=== PATIENT | female | born 1990 | race Caucasian/White ===

== ENCOUNTER → 2023-01-02 09:00 | Outpatient (BNV) | payer OTHER, SELFPAY | PROVIDERS: Visit Provider Nurse Practitioner Psychiatric/Mental Health | DX: F33.2 Major depressive disorder, recurrent severe without psychotic features (principal) | CPT/HCPCS: 90792; 99212; 99213; 99214 ==

== ENCOUNTER 2023-02-15 09:00 | Outpatient (RCR) | payer OTHER, SELFPAY ==
--- NOTE | 2023-01-02 11:00 | HO.PS.ADMBH ---
HPI Date of Service: 01/02/23 Chief Complaint: depression,anxiety Sources of Information: patient interviewed, chart reviewed and crisis/core team assessment reviewed HPI Medical Problems Affecting Mental Status: No Narrative: Chart reviewed prior to meeting with patient. Patient is a 32-year-old single female, referred to [facility] as a step-down from [facility] PHP program. She just completed their PHP, due to increased symptoms of depression and anxiety with suicidal ideation. Precipitating events include recent discovery that her ex-boyfriend who she dated for 10+ years has become engaged to a colleague. They all work for same company, and she sees him at work. Reports that she has passive SI at this time, with no intent or plan. Has engaged in treatment since age 17, with therapy off/on. She had had suicidal ideation in 2018 with a plan to overdose, was admitted to [facility] of or retreat at that time. She owns her own home, has 2 roommates. One roommate is moving out of the and the month. She has 2 dogs. She does not want to engage with her friends at this time, because many of them station chief own homes in have gotten , and she feels as if her life is stuck. She did just complete a master's degree program in social work, graduated in November 2022. Since completing the program she has more time, and has found her symptoms to worsen. Reports waking up with a racing heart, to read in the morning. Disrupted sleep, anhedonia, feeling hopeless at times, guilt, decreased energy, decreased appetite, decreased concentration, shame and worthlessness. 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 She found the PHP at [facility] to be helpful in adding structure as well as opportunity for social interaction/group work. She hopes to had the same experience here. She has had recent medication changes, including the addition of Wellbutrin and lithium. [facility] has referred her to outpatient providers at [facility]. She has an intake scheduled, plans to reschedule with them, as it is next Saturday. Past Psychiatric History: [facility] PHP, just completed 12/2022. [facility] PHP in several times, [facility] at [place] in 2018 with SI Med trials: All SSRIs, including fluoxetine, sertraline. Effexor, Abilify, lamotrigine, Trintellix, Viibryd. Completed TMS in 2016 Medical Evaluation Reviewed: Yes PMFSH Family History: Mother: depression Social History: Raised by both parents, has 1 younger brother. Recently obtained a master's degree in social work. Works full-time. Substance History: None Trauma History: None Meds/Allergies Allergies Allergies Allergy/AdvReac Type Severity Reaction Status Date / Time Unable to Assess Allergy Unverified 01/02/23 09:01 Mental Status Exam Mental Status Exam Narrative: Well-developed, well-nourished, in NAD. Alert and oriented x4. General appearance, well groomed, appropriately dressed for season and age. Musculoskeletal: No involuntary movements noted, motor activity calm, posture within normal limits. Manner/behavior: Calm, cooperative. Speech: Fluent, unimpaired, normal rate volume and rhythm. Mood: depressed. Affect: Mood congruent. Thought process/associations: Linear Thought content: Normal Delusions: None. Hallucinations: None. Suicidality/self destructive behavior: Passive SI, no intent or plan Homicidality/violence: none. Reliability: Good Judgment: Fair Insight: Fair MSK exam: Normal ambulation, no cogwheeling or rigidity noted. Depressive Symptoms: Increased Anxiety, Difficulty Sleeping, Changes in Appetite, Loss of Int. in Activity, Feelings of Worthlessness, Hopelessness, Isolating-Friends/Family, Thoughts of /Suicide and Low Self Esteem Judgement: Fair Assessment & Plan Assessment & Plan (1) Major depressive disorder, recurrent severe without psychotic features: Status: Acute Code(s): F33.2 - Major depressive disorder, recurrent severe without psychotic features Assessment and Plan: Patient is a 32-year-old single female, referred to [facility] as a step-down from [facility] PHP program. She just completed their PHP, due to increased symptoms of depression and anxiety with suicidal ideation. Precipitating events include recent discovery that her ex-boyfriend who she dated for 10+ years has become engaged to a colleague. They broke up several years ago. She had always hope that they would reconcile. They all work for same company, and she sees him at work. Reports that she has passive SI at this time, with no intent or plan. While at [facility] she had recent medication changes, including Wellbutrin 300 mg daily, lithium at bedtime, hydroxyzine p.r.n.. She states that she feels these medications are helpful, although has not been receiving Wellbutrin long enough to notice improvement symptoms regarding depression. Would like to focus more on groups while here and structure, as she just had recent medication changes. (2) Generalized anxiety disorder: Status: Acute Code(s): F41.1 - Generalized anxiety disorder Plan 1. Continue with current [facility] plan of care. 2. Continue with current medication regimen as prescribed by outpatient provider. 3. Follow-up as per protocol. Patient educated on: diagnosis, medication risk/benefits and therapeutic strategies Informed Consent: understands Reason for continued partial hosp. stay Substantial Risk for: harm to self, inability to function and rapid decompensation Certification I certify that partial hospital treatment is medically necessary due to the symptoms and problems resulting from the patient's mental illness and the failure to treat the patient at the partial hospital level of care would likely result in the patient requiring inpatient psychiatric care which could not be prevented at a less intensive level of care. Time Spent With Patient Time: Total time managing care of this patient today ___60_ minutes.
[2023-01-02 12:17] VITALS: BP 112/64; PULSE 72; TEMP 37.4
[2023-01-02 12:21] VITALS: BMI 25.3
--- NOTE | 2023-01-02 12:58 | PC.ADMIT ---
Patient is a 32 year old female who was referred to [facility] from [facility] Partial Hospitalization program where she was admitted d/t increased depression and ongoing passive SI, anxiety with panic attacks, crying spells and not want to get out of bed. Patient has not been able to work d/t symptoms. She stated she has been working at [employer] for the past 8 years and her mcc boyfriend broke up with her and is now engaged to a [employer] employee. She reports while she was working she would see both of them at work. She continues to grieve the relationship. Patient reports feelings of hopelessness and feels shes not good enough. Fears she will never find another job or partner. She reports she has been on a leave of absence from work for 8 weeks
--- NOTE | 2023-01-04 07:30 | HO.IOP ---
The clients case was reviewed and opened in treatment team
--- NOTE | 2023-01-04 11:15 | HO.PHP ---
The clients window caser Fide called from [facility] requesting start date and estimated length of sat for IOP. I spoke with pratik and she signed a release. I call and gave Fide the information.
--- NOTE | 2023-01-17 10:13 | P.PNPSP_ITS ---
Subjective Subjective Date of Service: 01/17/23 Reason For Visit: depression,anxiety Healthcare Proxy: No Guardianship: No Medical Problems Affecting Mental Status: No Interim History: pt attending [facility] and reports benefitting from group treatment; pt compliant with lithium and wellbutrin; discussed need fro hydration while on lithum; she is scheduled for repeat lithium level on january 28. she reports s the medication has been helpful with mood and reducing intrusive SI. pt states no SI or Hi Medication Compliance: Yes Side effects from medications: Yes (frequent urination) Attending Groups: Yes Review of Systems Acute medical concerns: No Medical Review of Systems: unchanged Review of Systems Review of Systems Yes all other systems are reviewed and are negative Mental Status Exam Mental Status Exam Narrative: Well-developed, well-nourished, in NAD. Alert and oriented x4. General appearance, well groomed, appropriately dressed for season and age. Musculoskeletal: No involuntary movements noted, motor activity calm, posture within normal limits. Manner/behavior: Calm, cooperative. Speech: Fluent, unimpaired, normal rate volume and rhythm. Mood: depressed. Affect: Mood congruent. Thought process/associations: Linear Thought content: Normal Delusions: None. Hallucinations: None. Suicidality/self destructive behavior: Passive SI, no intent or plan Homicidality/violence: none. Reliability: Good Judgment: Fair Insight: Fair MSK exam: Normal ambulation, no cogwheeling or rigidity noted. Diagnostics Vital Signs (24Hr): BMI result Body Mass Index 25.3 Assessment & Plan Assessment & Plan (1) Major depressive disorder, recurrent severe without psychotic features: Status: Acute Code(s): F33.2 - Major depressive disorder, recurrent severe without psychotic features Assessment and Plan: Patient is a 32-year-old single female, referred to [facility] as a step-down from [facility] PHP program. She just completed their PHP, due to increased symptoms of depression and anxiety with suicidal ideation. Precipitating events include recent discovery that her ex-boyfriend who she dated for 10+ years has become engaged to a colleague. They broke up several years ago. She had always hope that they would reconcile. They all work for [employer], and she sees him at work. Reports that she has passive SI at this time, with no intent or plan. Pt taking Wellbutrin 300 mg daily, lithium 600mg at bedtime and hydroxyzine p.r.n.. She states that she feels these medications are helpful. scheduled fro labs January 28. Would like to focus more on groups while here and structure, as she just had recent medication changes. (2) Generalized anxiety disorder: Status: Acute Code(s): F41.1 - Generalized anxiety disorder Plan 1. Continue with current [facility] plan of care. 2. Continue with current medication regimen as prescribed by outpatient provider. 3. Follow-up as per protocol. 4. [facility] paperwork completed Patient educated on: diagnosis, medication risk/benefits, therapeutic strategies and other (need fro adequate hydration) Informed Consent: understands and further education needed Reason for contiued partial hosp. stay Substantial Risk for: harm to self, inability to function and rapid decompensation Certification I certify that partial hospital treatment is medically necessary due to the symptoms and problems resulting from the patient's mental illness and the failure to treat the patient at the partial hospital level of care would likely result in the patient requiring inpatient psychiatric care which could not be prevented at a less intensive level of care. Total time managing care of this patient today ___45_ minutes. Discharge Plan Discharge Attending provider: King Guerin Medications: No Action lithium carbonate 300 mg Capsule 600 mg PO BEDTIME hydroxyzine HCl 25 mg Tablet 25 mg PO BID PRN (Reason: Anxiety) bupropion HCl [Wellbutrin XL] 300 mg Tablet Extended Release 24 Hr 300 mg PO QAM
--- NOTE | 2023-01-23 13:50 | HO.IOP ---
I met with Christine to discuss needs for discharge. She states that she would like a new prescriber because she is not pleased with the prescriber she has. We discussed my making an appointment to [facility] if she can not switch prescribers where she is at. She will let me know.
--- NOTE | 2023-02-01 09:33 | HO.PHPPROGNO ---
Subjective Subjective Date of Service: 02/01/23 Reason For Visit: depression,anxiety Healthcare Proxy: No Guardianship: No Medical Problems Affecting Mental Status: No Interim History: Christine is seen for follow-up as part of her engagement at [facility]. She is stable and is doing better in talked about the benefits that she is gaining from her treatment. She was put on lithium carbonate while at [facility] for suicidal ideations and her level a few days ago was 0.6. She also is on Wellbutrin XL 300 mg and very occasional p.r.n. hydroxyzine. She denies any major side effects other than urinating more on lithium. She is not getting many times during the night to urinate. Medication Compliance: Yes Side effects from medications: Yes (Increased urination) Attending Groups: Yes Review of Systems Review of Systems Yes all other systems are reviewed and are negative Mental Status Exam Mental Status Exam Narrative: In today's visit she is alert, oriented and pleasant. Normal speech. Good eye contact. Affect is appropriate and varied. No SI upon inquiry. No signs of psychosis. Cognitively is intact. Judgment is intact Diagnostics Vital Signs (24Hr): BMI result Body Mass Index 25.3 Assessment & Plan Assessment & Plan (1) Major depressive disorder, recurrent severe without psychotic features: Status: Acute Code(s): F33.2 - Major depressive disorder, recurrent severe without psychotic features Plan Continue current medications and continue partial hospital Certification I certify that partial hospital treatment is medically necessary due to the symptoms and problems resulting from the patient's mental illness and the failure to treat the patient at the partial hospital level of care would likely result in the patient requiring inpatient psychiatric care which could not be prevented at a less intensive level of care. Total time managing care of this patient today ____ minutes. Discharge Plan Discharge Attending provider: King Guerin Medications: Continued lithium carbonate 300 mg Capsule 600 mg PO BEDTIME Qty: 60 0RF bupropion HCl [Wellbutrin XL] 300 mg Tablet Extended Release 24 Hr 300 mg PO QAM Qty: 60 0RF No Action hydroxyzine HCl 25 mg Tablet 25 mg PO BID PRN (Reason: Anxiety) Stand Alone Forms: Patient Portal Discharge page Patient Education: Depression (DC)
--- NOTE | 2023-02-06 15:12 | HO.PHP ---
I met with the client because she stated in the third group that she was experiencing suicidal ideation with plan but no intent although not sure that will change. We discussed going to get assessed and possibly going inpatient. She was agreeable to do so although after talking she stated that she does not have intent and wants to come back here tomorrow. We devised a plan that includes calling crisis if needed and calling out from work and talking with her boss. I then called the client at 3:00 to make sure she was okay and following the plan. She states that she did call out of work and is presently at a friends home. She states that she does not have intent and is safe and will be in PHP tomorrow. She has the numbers for crisis if needed although does say that she is safe.
--- NOTE | 2023-02-12 11:34 | HO.PHPPROGNO ---
Subjective Subjective Date of Service: 02/12/23 Reason For Visit: depression,anxiety Healthcare Proxy: No Guardianship: No Medical Problems Affecting Mental Status: No Interim History: Christine is seen for follow-up as part of her partial hospital engagement. She has been doing very well and has found the program very helpful. She will be ending on 02/15. A prescription for lithium was sent in but she would like the extended-release and since she is going on vacation and does not want change to a new formulation. I will call in Lithobid 300 mg 60, 2 q.h.s.. She does have an appointment with her psychiatrist in mid-February. No other changes were made today Medication Compliance: Yes Side effects from medications: No Review of Systems Review of Systems Yes all other systems are reviewed and are negative Mental Status Exam Mental Status Exam Narrative: In today's visit she is alert, oriented and pleasant. Normal speech. Good eye contact. Affect is appropriate and varied. No SI upon inquiry. No signs of psychosis. Cognitively is intact. Judgment is intact Diagnostics Vital Signs (24Hr): BMI result Body Mass Index 25.3 Assessment & Plan Assessment & Plan (1) Major depressive disorder, recurrent severe without psychotic features: Status: Acute Code(s): F33.2 - Major depressive disorder, recurrent severe without psychotic features Plan Continue current regimen. Patient educated on: medication risk/benefits Certification I certify that partial hospital treatment is medically necessary due to the symptoms and problems resulting from the patient's mental illness and the failure to treat the patient at the partial hospital level of care would likely result in the patient requiring inpatient psychiatric care which could not be prevented at a less intensive level of care. Total time managing care of this patient today ____ minutes. Discharge Plan Discharge Attending provider: King Guerin Medications: New lithium carbonate [Lithobid] 300 mg tablet extended release 600 mg PO BEDTIME Qty: 60 0RF Continued lithium carbonate 300 mg Capsule 600 mg PO BEDTIME Qty: 60 0RF bupropion HCl [Wellbutrin XL] 300 mg Tablet Extended Release 24 Hr 300 mg PO QAM Qty: 60 0RF No Action hydroxyzine HCl 25 mg Tablet 25 mg PO BID PRN (Reason: Anxiety) Stand Alone Forms: Patient Portal Discharge page Patient Education: Depression (DC), Help Prevent Suicide (DC), Anxiety (GEN)
--- NOTE | 2023-02-12 16:06 | HO.IOP ---
Christine asked IOP staff if she could meet with the clinician. IOP staff was receptive. Christine talked about feeling worried due to how she may have affected a group member by not participating in the conversation and was shut down in the second group yesterday. Christine disclosed that she was shut down for her own personal reasons due to it reminding her of situations with her father. Christine expressed concerns around possibly affecting this group member. IOP staff encouraged Christine if she feels that way, she can attempt addressing it with that group member. IOP staff and Christine talked about the impacts of anxiety and how it leads to her worry. Christine lastly, expressed concerns around why her clinician has been out and was worried that she got her fired. IOP staff asked Christine why she would feel that way. Christine disclosed she misinterpreted a statement from her clinician. IOP staff reassured Chrsitine that her clinician will be returning tomorrow and had just taken a couple personal days. Christine was receptive and thanked the IOP staff member.
--- NOTE | 2023-02-15 09:30 | P.PNPSP_ITS ---
Subjective Subjective Date of Service: 02/15/23 Reason For Visit: depression,anxiety Healthcare Proxy: No Guardianship: No Medical Problems Affecting Mental Status: No Interim History: This is is a follow-up visit with Regla has part of her partial hospital engagement. She is being discharged today. She states that the program was quite helpful to her, giving her some new tools and insight. She continues on L ithobid and Wellbutrin. She has an appointment with her provider on 03/08 and talked about her upcoming ten-day trip to [facility]. She has enough medication supply until her next appointment. She denies any side effects. No changes were made today Medication Compliance: Yes Side effects from medications: No Attending Groups: Yes Review of Systems Review of Systems Yes all other systems are reviewed and are negative Mental Status Exam Mental Status Exam Narrative: In today's visit she is alert, oriented and pleasant. Normal speech. Good eye contact. Affect is appropriate and varied. No SI upon inquiry. No signs of psychosis. Cognitively is intact. Judgment is intact Diagnostics Vital Signs (24Hr): BMI result Body Mass Index 25.3 Assessment & Plan Assessment & Plan (1) Major depressive disorder, recurrent severe without psychotic features: Status: Acute Code(s): F33.2 - Major depressive disorder, recurrent severe without psychotic features Plan Continue current regimen of both medications. Follow up with her outpatient providers, next appointment on 03/08. Patient educated on: medication risk/benefits Certification I certify that partial hospital treatment is medically necessary due to the symptoms and problems resulting from the patient's mental illness and the failure to treat the patient at the partial hospital level of care would likely result in the patient requiring inpatient psychiatric care which could not be prevented at a less intensive level of care. Total time managing care of this patient today ____ minutes. Discharge Plan Discharge Attending provider: King Guerin Medications: New lithium carbonate [Lithobid] 300 mg tablet extended release 600 mg PO BEDTIME Qty: 60 0RF Continued lithium carbonate 300 mg Capsule 600 mg PO BEDTIME Qty: 60 0RF bupropion HCl [Wellbutrin XL] 300 mg Tablet Extended Release 24 Hr 300 mg PO QAM Qty: 60 0RF No Action hydroxyzine HCl 25 mg Tablet 25 mg PO BID PRN (Reason: Anxiety) Stand Alone Forms: Patient Portal Discharge page Patient Education: Depression (DC), Depression (GEN), Generalized Anxiety Disorder (GEN), Help Prevent Suicide (DC), Anxiety (GEN)
--- NOTE | 2023-02-15 15:53 | HO.PHP ---
I left a message for the clients therapist , Bria Zhou re clients discharge.
== END 2023-02-15 23:59 | disposition home or self-care (01) ==
LOC: HO.IOP 09:00
PROVIDERS: Visit Provider Psychiatry & Neurology Psychiatry
DX: F33.2 Major depressive disorder, recurrent severe without psychotic features (principal); F41.1 Generalized anxiety disorder; Z79.899 Other long term (current) drug therapy
CPT/HCPCS: 90791; H0015; S9480

== ENCOUNTER → 2023-05-10 12:00 | Outpatient (BNV) | payer OTHER, SELFPAY | PROVIDERS: Visit Provider Psychiatry & Neurology Psychiatry | DX: F41.1 Generalized anxiety disorder (principal); F33.2 Major depressive disorder, recurrent severe without psychotic features | CPT/HCPCS: 90792; 99213 ==

== ENCOUNTER 2023-05-24 09:15 | Outpatient (RCR) | payer OTHER, SELFPAY ==
[2023-05-10 11:20] VITALS: BP 125/92; PULSE 82; TEMP 36.8
[2023-05-10 11:22] VITALS: BMI 24.0
--- NOTE | 2023-05-10 11:51 | PC.ADMIT ---
Patient is a 32 year old female who self referred to PHP d/t increased depression with SI with multiple plans however denied intent. Patient stated, I have thoughts but I don't have intent I do have plans but I don't intend to act on them. Thoughts to overdose, car in the garage, sitting in a hot car. Asked what stops her and she stated, The people that I care about and not wanting to hurt them and wanting to believe it will get better. Patient does not want to , stated, Last week I realized I don't want to , it scares me. 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 Patient reports triggers include her EX boyfriend and his fiance work together and her EX boyfriends work department is moving closer to hers where she will have to run into him and his fiance. She also stated she may have COPD and has a f/u appointment with a [employer]er in May 2023. She stated when she thinks about possibly having COPD she has panic attacks and feels overwhelmed with the possibility. Christine is alert and oriented x4. Calm and cooperative. Presented with depressed mood and anxious affect. Patient given a copy of her safety plan if needed and I reviewed the plan with her. Medications reconciled with patient and pharmacy. She reports taking medications as prescribed.
--- NOTE | 2023-05-10 16:15 | HO.PS.ADMBH ---
HPI Date of Service: 05/10/23 Chief Complaint: depression,anxiety Additional Sources of Information: Christine is a 32 year old female with a history of depression and generalized anxiety who is being admitted to [facility] from the community to address mental health issues stemming from a break-up and subsequent struggles with trying to recover and move on from this long-term relationship. The situation is aggravated by the fact that the patient continues to work at the same place as her ex-partner and his fiancee who also works there. She previously participated in IOP here at [facility] as a step-down from [facility] in . She notes that last time she was here she was in a major crisis and felt that the program. She reportedly had been managing fine until her job required everyone to return to work in-person in March. Since that time she has been lower, experiencing some passive SI, without intention or plan. She denies any issues with aggression, no rodney or psychosis. Drinks socially on occasion, denies any illicit substance use. She anticipates encountering her ex-boyfriend next month once they consolidate departments at work, which is causing her considerable anxiety and apprehension. She says she is at [facility] to work on her PTSD. She has had long-standing issues with generalized anxiety in the past, overthinking. In the past she was experiencing some episodes of feeling faint which had been getting worse in recent months and says both cognitive and somatic anxiety seem fairly even now. SHe has had some complaints of persister SOB and recently underwent pulmonary function tests which determined an obstructive airway pattern. She is questioning how she could have COPD and never been a smoker. She has been referred to a labels molder and is also anxiously waiting for this appointment. HPI Past Psychiatric History: Has engaged in treatment since age 17, with therapy off/on. She had had suicidal ideation in 2018 with a plan to overdose, was admitted to [facility] or retreat at that time. [facility] PHP, completed 12/2022. step-down to [facility] December-January 2023. [facility] PHP in several times, [facility] IP at [place] in 2018 with SI Med trials: All SSRIs, including fluoxetine, sertraline. Effexor, Abilify, lamotrigine, Trintellix, Viibryd. Completed TMS in 2016 [facility] Medical History (Updated 05/13/23 @ 05:30 by Mraia Antonia Tijerina MD) H/O nephrolithotomy with removal of calculi Kidney stones Family History: Mother: depression Social History: Raised by both parents, has 1 younger brother. Recently obtained a master's degree in social work in November 2022. Works full-time at [employer] Lives at home with her friend and friend's BF. She owns her own home. Substance History: Social etoh use, denies any other hx Trauma History: None Diagnostics Vital Signs (24Hr): Vital Signs - 24 hr 05/10/23 11:20 Temperature 98.2 F Pulse Rate 82 Blood Pressure 125/92 H BMI result Body Mass Index 24.0 Meds/Allergies Meds Home Medications Medication Instructions Recorded Confirmed Type hydroxyzine HCl 25 mg tablet 25 mg PO BID PRN Anxiety 01/02/23 05/10/23 History buspirone 10 mg tablet 20 mg PO DAILY PRN Anxiety 05/10/23 05/10/23 History melatonin 5 mg capsule 10 mg PO QPM 05/10/23 05/10/23 History Allergies Allergies Allergy/AdvReac Type Severity Reaction Status Date / Time No Known Allergies Allergy Verified 01/02/23 12:17 Mental Status Exam Mental Status Exam Narrative: Alert and oriented x3, in no acute distress. Pleasant, calm, cooperative. Maintains eye contact. Speech normal. No evidence of pressured or delayed speech. Mood depressed, anxious. Affect constricted. Thought process linear, coherent. Thought content relavent to stressors, denies SI/HI, no AVH. No paranoia or psychosis. Cognition intact. Sensorium clear. Insight fair but adequate. Judgment intact. Assessment & Plan Assessment & Plan (1) Generalized anxiety disorder: Status: Acute Code(s): F41.1 - Generalized anxiety disorder (2) Major depressive disorder, recurrent, in partial remission: Status: Acute Code(s): F33.41 - Major depressive disorder, recurrent, in partial remission Plan Admit to [facility] Continue regular medications No refills needed at this time Patient educated on: diagnosis and medication risk/benefits Informed Consent: understands Reason for continued partial hosp. stay Substantial Risk for: inability to function and rapid decompensation Certification I certify that partial hospital treatment is medically necessary due to the symptoms and problems resulting from the patient's mental illness and the failure to treat the patient at the the [facility] specialty hospital hospital level of care would likely result in the patient requiring inpatient psychiatric care which could not be prevented at a less intensive level of care. Time Spent With Patient Time: Total time managing care of this patient today __60__ minutes.
--- NOTE | 2023-05-16 17:35 | HO.PHP ---
PHP clinician, PHP workforce investment act career manager, and PHP admin met with Christine to review her request around IOP. Christine explained that she [facility] and would like to complete the IOP program here if she is struggling. Christine disclosed that it is a week long program and she would like to start right after that. Christine expressed the transitions she is going through in her life. PHP workforce investment act career manager disclosed at this time we are short staffed and already have a wait list that is booking out until June. PHP workforce investment act career manager informed her that we can place her on the wait list as well if any call outs occur. Christine appeared teary eye. PHP workforce investment act career manager informed her that she will provide her number so she can check in to let her know if the program is still something she is seeking and will place her for an intake for June 28, 2023. PHP workforce investment act career manager also disclosed she will look into other IOP programs in the area if they are unable to place her at the date she was seeking of June 03, 2023. Christine left the room crying.
--- NOTE | 2023-05-16 17:43 | HO.PHP ---
PHP clinician followed up with Christine, since she did not return to the last group. Christine informed the clinician that she was upset because she is feeling like a number and didn't feel that she was having her needs met to attend the program. [facility] clinician empathized with Christine and voiced that we do have her on the calendar for June 28, 2023 and if a cancellation occurs, we will get her in earlier. Christine was quiet. [facility] clinician explored safety. Christine had mentioned that she is safe and isn't going to act on anything. Christine had noted she will be in the program tomorrow. [facility] staff was receptive.
--- NOTE | 2023-05-16 18:19 | HO.PHP ---
Clients case was reviewed and opened today in treatment team.
--- NOTE | 2023-05-17 07:44 | HO.PHP ---
[facility] staff member reached out to Christine's OP therapist via telephone. Christine's therapist phone line had stated that the call could not be completed and to try at a later time. [facility] staff member was unable to leave a message.
--- NOTE | 2023-05-17 15:11 | P.PNPSP_ITS ---
Subjective Subjective Date of Service: 05/17/23 Reason For Visit: depression,anxiety Interim History: Patient seen for follow-up. No acute events in interim. Reports some new symptoms of feeling vaguely dissociated. Has trouble articulating the experience as hearing myself talking , denies is AH says she recognizes it is her own thoughts. Denies she is experiencing any derealization or depersonalization. She attributes this to getting triggered from some of the discussions in group. Talked about interest in lowering her lithium dose though acknowledges that this might not be the right time seeing as she is in the middle of treatment for addressing trauma issues. She has had recent lab work done through her PCP and had some concerns and says she will bring in a hard copy of her labs next week to review since she was unable to access the labs on patient portal today. She reports that she stopped taking her Buspar last week and hydroxyzine taking only intermittently as this is PRN for test taking. Is looking forward to week of therapy at [facility] but concerned this will complicate her ability to return for IOP here. Medication Compliance: Yes Side effects from medications: No Mental Status Exam Mental Status Exam Narrative: Alert and oriented x3, in no acute distress. Pleasant, calm, cooperative. Maint ains eye contact. Speech normal. No evidence of pressured or delayed speech. Mood depressed, anxious. Affect less constricted, moments of brightening. Thought process linear, coherent, goal-directed. Thought content relevant to stressors, rumination, denies SI/HI, no AVH. No paranoia or psychosis. Cognition intact. Sensorium clear. Insight fair but adequate. Judgment intact. Diagnostics Vital Signs (24Hr): BMI result Body Mass Index 24.0 Assessment & Plan Assessment & Plan (1) Major depressive disorder, recurrent, in partial remission: Status: Acute Code(s): F33.41 - Major depressive disorder, recurrent, in partial remission (2) Generalized anxiety disorder: Status: Acute Code(s): F41.1 - Generalized anxiety disorder Plan Continue treatment Certification I certify that partial hospital treatment is medically necessary due to the symptoms and problems resulting from the patient's mental illness and the failure to treat the patient at the partial hospital level of care would likely result in the patient requiring inpatient psychiatric care which could not be prevented at a less intensive level of care. Total time managing care of this patient today __30__ minutes. Discharge Plan Discharge Attending provider: Maria Antonia Tijerina Additional Instructions: Christine has an OP therapy appointment with Dr. Bria Zhou through a private practice on May 15, 2023 at 3 PM. Christine also has another OP therapist whose focus is around trauma, Katelynn Rodriguez, in which Christine's next scheduled appointment is on May 22, 2023 at 3:30 PM. Medications: No Action hydroxyzine HCl 25 mg Tablet 25 mg PO BID PRN (Reason: Anxiety) lithium carbonate 300 mg Capsule 600 mg PO BEDTIME Qty: 60 0RF bupropion HCl [Wellbutrin XL] 300 mg Tablet Extended Release 24 Hr 300 mg PO QAM Qty: 60 0RF buspirone 10 mg tablet 20 mg PO DAILY PRN (Reason: Anxiety) Rx Instructions: 2 tabs daily prn melatonin 5 mg capsule 10 mg PO QPM Stand Alone Forms: Patient Portal Discharge page
--- NOTE | 2023-05-21 13:28 | HO.PHP ---
PHP staff followed up with Christine after group 3 to review her comment around having a plan. Christine stated she has multiple plans of closing the garage door with her car on (CO2 [place]), OD, and jumping off her balcony. Christine disclosed that she has no intent to act on these plans. PHP staff assessed what she will be doing after program. Christine disclosed that she is going to go to work to identify where her ex's desk is located to prepare herself for when she returns to work. PHP staff was receptive and explored if that is going to create for additional stressors. Christine voiced that it may but she would like to do it while in the program and receiving support. PHP staff was receptive and explored supports she could contact if it is challenging for her tonight. Christine noted she does not have a lot of supports. PHP staff suggested contacting crisis if symptoms and thoughts increase. Christine was receptive. Christine noted she will be safe and attending program tomorrow.
--- NOTE | 2023-05-24 13:49 | HO.PHP ---
[facility] staff met with Christine after group three to check in with her prior to her leaving the program and to wish her well. Christine was emotional and expressed her fears of not having the IOP program in place. Christine made suggestions about how she feels [facility] and [facility] should have two separate wait list. [facility] staff encouraged her to put that on the survey. [facility] staff supported Christine with where she currently is. Christine was able to regulate. Christine noted feeling anxious around an email she [facility] requesting support and is now feeling embarresed. Christine explored if what she did was wrong. [facility] staff informed her that it sounds as though she was advocating for herself and that is fine to do. Christine went back and forth around if it was appropriate or not. Christine also talked about her career and asked the clinician questions since we are in the same field. [facility] staff provided support to Christine and encouraged her to continue on her career path. Christine appeared receptive and thanked the clinician for her support.
--- NOTE | 2023-05-24 15:10 | HO.PHPPROGNO ---
Subjective Subjective Date of Service: 05/24/23 Reason For Visit: depression,anxiety Interim History: Patient seen by this repairer typewriter, anticipates discharge today. No acute issues or concerns. Patient brought in recent lab work as she is concerned about continuing on lithium. She has no clinical complaints, but says she is moreso concerned about long-term effects of lithium. We reviewed lab findings. Duncan level at 0.4. Creatinine remains at 0.9 (unchanged when compared to renal function from older labs (from 2018) which predate the start of lithium. There is some elevation in TSH, borderline low T3, but not significantly so, at least at this time I don't have any concerns that would warrant immediate action. (of note, there are some reports that SARS-CoV-2 vaccines are associated with thyroid dysfunction, of which patient received vaccination some time prior to getting lab work done). Nonetheless I suggest she follow-up with her med provider who could recheck TFTs in a couple of months. She notes previously being on Abilify which was helpful but caused weight gain. She was not prescribed metformin to mitigate weight gain. She reportedly stopped taking the prn buspirone 20 mg qd; she says it was started only 1-2 months ago, and has not found it helpful and in fact found it got in the way of sleep. She appears to be tolerating her medications otherwise, no changes were made today. Will continue Wellbutrin XL 300 mg qam, lithium 300 mg bid, hydroxyzine 25 mg bid PRN, melatonin 10 mg qhs. She does not need any refills at this time. For now she is looking forward to starting in trauma program next week and is hoping she can return to [facility] the week following the trauma program. She reports mood as anxious, but manageable. She denies any hopelessness or SI. No AVH or aggressive ideation. Medication Compliance: Yes Side effects from medications: No Mental Status Exam Mental Status Exam Narrative: Alert and oriented, in no acute distress. Pleasant, calm, cooperative. Maintains eye contact. Speech normal. No evidence of pressured or delayed speech. Mood anxious. Affect brighter, appropriate. Denies any SI or HI. No paranoia or psychosis. Cognition intact. Insight fair but adequate. Judgment intact. Diagnostics Vital Signs (24Hr): BMI result Body Mass Index 24.0 Assessment & Plan Assessment & Plan (1) Generalized anxiety disorder: Status: Acute Code(s): F41.1 - Generalized anxiety disorder (2) Major depressive disorder, recurrent severe without psychotic features: Status: Acute Code(s): F33.2 - Major depressive disorder, recurrent severe without psychotic features Plan Discharge from [facility] Continue on current medications, will defer to outpatient treaters for further medication management Patient educated on: diagnosis and medication risk/benefits Informed Consent: understands Reason for contiued partial hosp. stay Substantial Risk for: stable for discharge Certification I certify that partial hospital treatment is medically necessary due to the symptoms and problems resulting from the patient's mental illness and the failure to treat the patient at the partial hospital level of care would likely result in the patient requiring inpatient psychiatric care which could not be prevented at a less intensive level of care. Total time managing care of this patient today __30__ minutes. Discharge Plan Discharge Attending provider: Maria Antonia Tijerina Additional Instructions: Christine has an OP therapy appointment with Dr. Bria Zhou through a private practice on 2022 at 3 PM. Christine also has another OP therapist whose focus is around trauma, Katelynn Rodriguez, in which Christine's next scheduled appointment is on May 29 2023 . Medications: No Action hydroxyzine HCl 25 mg Tablet 25 mg PO BID PRN (Reason: Anxiety) lithium carbonate 300 mg Capsule 600 mg PO BEDTIME Qty: 60 0RF bupropion HCl [Wellbutrin XL] 300 mg Tablet Extended Release 24 Hr 300 mg PO QAM Qty: 60 0RF buspirone 10 mg tablet 20 mg PO DAILY PRN (Reason: Anxiety) Rx Instructions: 2 tabs daily prn melatonin 5 mg capsule 10 mg PO QPM Stand Alone Forms: Patient Portal Discharge page Patient Education: Depression (DC)
== END 2023-05-24 23:59 | disposition home or self-care (01) ==
LOC: HO.PHPA 09:15
PROVIDERS: Visit Provider Psychiatry & Neurology Psychiatry
DX: F33.2 Major depressive disorder, recurrent severe without psychotic features (principal); F41.1 Generalized anxiety disorder; Z79.899 Other long term (current) drug therapy
CPT/HCPCS: 90791; 90853

== ENCOUNTER → 2023-06-07 09:00 | Outpatient (BNV) | payer OTHER, SELFPAY | PROVIDERS: Visit Provider Psychiatry & Neurology Psychiatry | DX: F41.1 Generalized anxiety disorder (principal); F33.41 Major depressive disorder, recurrent, in partial remission; F60.9 Personality disorder, unspecified | CPT/HCPCS: 90792; 99213 ==

== ENCOUNTER 2023-07-05 09:00 | Outpatient (RCR) | payer OTHER, SELFPAY ==
--- NOTE | 2023-06-07 09:14 | HO.PS.ADMBH ---
HPI Date of Service: 06/07/23 Chief Complaint: depression,anxiety Sources of Information: patient interviewed and chart reviewed HPI Narrative: Patient is a 32-year-old single female, who is returning to [facility] for IOP for ongoing issues with anxiety and grief related to relationship loss and the stress of continuing to work at the same place as her ex and his new fiancee. Other noted problems include current medical stressors, follow-up for SOB, some previously mentioned concerns about possible COPD dx based on recent PFTs (no smoking hx) and upcoming pulmonology appointment next week. She just completed PHP here on 05/24 and was discharged to attend the [facility] in [place] for the past week. , due to increased symptoms of depression and anxiety with suicidal ideation. Precipitating events include recent discovery that her ex-boyfriend who she dated for 10+ years has become engaged to a colleague. They all work for same company, and she sees him at work. Reports that she has passive SI at this time, with no intent or plan. She reports some modest improvements. She has recently met someone and there's some potential for a buddying relationship, and says this has got her feeling a little more hopeful. She reports her mood as more stable now, still quite ruminative regarding her ex (and his fiancee), and sharing work environment with them is emotionally provoking. Current SI level not frequent, and not today so far . She was started on lithium in November for SI, she is not sure if that has really been helpful as she had been experiencing SI up until the past week or so. She indicates she would like to get off the lithium. She had spent 1-2 weeks off lithium over the summer when she was traveling in [place] for [employer], she did not appreciate any difference being off/on the medication. She reportedly took a Buspar yesterday to help with anxiety as she had to return to work and was having anxiety about seeing her ex. She did not have a meltdown, but did still experience anxiety. She is prescribed Buspar to take PRN, she generally does not take it regularly, only sporadically, but denies any side effects. Sleep has been variable during week, 4 or 5 hours, better on weekends getting 8 hours. Appetite is intact. She identifies her main issues as loneliness, not feeling fulfilled. [facility] was helpful in identifying past trauma of being raised by an emotionally immature parent in addition to the relationship loss. Past Psychiatric History: IP at [facility] in 2018 for suicidal ideation in 2018 with a plan to overdose Past Psychiatric History: PHP admissions several times, [facility], [facility], [facility] Most recent admission: [facility] PHP completed 12/2022. [facility] IOP 01/2023. [facility] PHP 04/2023 and now IOP at [facility] 05/2023 Has engaged in outpatient treatment since age 17, with therapy off/on Prescriber: Tara Gómez FORESTRY SUPERVISOR in [facility] since 2022 Med trials: All SSRIs, including fluoxetine, sertraline. Effexor, Abilify, lamotrigine, Trintellix, Viibryd. Completed TMS in 2015 Tan[place]a and Wellbutrin started since 12/2022. [facility] Medical History (Updated 05/13/23 @ 05:30 by Maria Antonia Tijerina MD) H/O nephrolithotomy with removal of calculi Kidney stones Family History: Mother: depression Paternal grandfather: depression No FH suicides Social History: Raised by both parents, has 1 younger brother. Recently obtained a master's degree in social work in November 2022. Works full-time at [employer] Lives at home with her friend and friend's BF. She owns her own home. Substance History: Alcohol use on occasion, socially, in moderation Hallucinogens: used mushrooms once, said it went terribly and would never use again Cannabis use: none Denies any other illicit substance use Nicotine: none Trauma History: Reports hx of relational trauma: endorses little 't' trauma hx related to being raised by the emotionally immature parent No hx of verbal, emotional, physical or sexual abuse Meds/Allergies Meds Home Medications Medication Instructions Recorded Confirmed Type melatonin 5 mg capsule 10 mg PO QPM 05/10/23 06/07/23 History Allergies Allergies Allergy/AdvReac Type Severity Reaction Status Date / Time No Known Allergies Allergy Verified 01/02/23 12:17 Mental Status Exam Mental Status Exam Narrative: Alert and oriented, in no acute distress. Pleasant, calm, cooperative. Maintains eye contact. Speech normal. No evidence of pressured or delayed speech. Mood anxious. Affect brighter, appropriate. Denies any SI or HI. No paranoia or psychosis. Cognition intact. Insight fair but adequate. Judgment intact. Assessment & Plan Assessment & Plan (1) Generalized anxiety disorder: Status: Acute Code(s): F41.1 - Generalized anxiety disorder (2) Major depressive disorder, recurrent, in partial remission: Status: Acute Code(s): F33.41 - Major depressive disorder, recurrent, in partial remission Plan Admit to IOP Discussed proper trial of buspirone, pt agrees. Will start Buspar 10 mg BID requests refills on hydroxyzine 25 mg qhs PRN sleep continue other medications Patient educated on: diagnosis and medication risk/benefits Informed Consent: understands Reason for continued partial hosp. stay Substantial Risk for: inability to function and med/psych decompensation Certification I certify that partial hospital treatment is medically necessary due to the symptoms and problems resulting from the patient's mental illness and the failure to treat the patient at the partial hospital level of care would likely result in the patient requiring inpatient psychiatric care which could not be prevented at a less intensive level of care. Time Spent With Patient Time: Total time managing care of this patient today __60__ minutes.
[2023-06-07 10:39] VITALS: BP 135/91; PULSE 78; TEMP 37
[2023-06-07 10:42] VITALS: BMI 24.0
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
--- NOTE | 2023-06-11 21:36 | HO.PHPPROGNO ---
Subjective Subjective Date of Service: 06/11/23 Reason For Visit: depression,anxiety Interim History: Patient seen for follow-up. No acute issues or concerns. She reports her mood is fine. She has no SI. We discuss the history of having these thoughts which had been prevalent earlier in the year as related to her exBF, but says outside of this situation she had no prior history of SI. [place] was started back in November, but the acute SI had resolved around the same time she was started on the medication or just before she said. Since then she reports transient passive SI related to triggers (as pertains to seeing her exBF) She denies having had any urge, intention or plan to act on these thoughts. She still has some anxiety that comes and goes, continues to work on the anxieties related to her ex and managing the stress of sharing a work environment. She has tolerated the Buspar at 10 mg BID, has not been interferring with sleep if she takes PM dose at 5PM. Tolerates 10 mg in AM. Future-oriented. No evidence of mood instability. No evidence of aberrant thoughts or psychosis. She continues without change since lowering her lithium to 300 mg qd from BID last week. She had previous lab work done in April with elevated TSH, she agrees to send me these labs and will also obtain a new set tomorrow. She was given a lab slip for Li level, TFTs, BMP. Will follow up next week. Will plan to discontinue lithium and will be able to continue to observe her for any changes in mood stability and SI thoughts. Medication Compliance: Yes Side effects from medications: No Attending Groups: Yes Mental Status Exam Mental Status Exam Narrative: Alert and oriented, in no acute distress. Pleasant, calm but reserved, slightly uptight demeanor, but cooperative. Maintains eye contact. Speech normal. No evidence of pressured or delayed speech. Mood anxious. Affect brighter, appropriate. Denies any SI or HI. No paranoia or psychosis. Cognition intact. Insight fair but adequate. Judgment intact. Diagnostics Vital Signs (24Hr): BMI result Body Mass Index 24.0 Assessment & Plan Assessment & Plan (1) Generalized anxiety disorder: Status: Acute Code(s): F41.1 - Generalized anxiety disorder (2) Major depressive disorder, recurrent, in partial remission: Status: Acute Code(s): F33.41 - Major depressive disorder, recurrent, in partial remission Plan Continue in [facility] Pt is tolerating reduction in lithium to 300 mg QD as well as increase of Buspar to 10 mg BID continue other regular medications continue to monitor as per protocol Patient educated on: diagnosis and medication risk/benefits Informed Consent: understands Reason for contiued partial hosp. stay Substantial Risk for: med/psych decompensation Certification I certify that partial hospital treatment is medically necessary due to the symptoms and problems resulting from the patient's mental illness and the failure to treat the patient at the partial hospital level of care would likely result in the patient requiring inpatient psychiatric care which could not be prevented at a less intensive level of care. Total time managing care of this patient today _30___ minutes. Discharge Plan Discharge Attending provider: Maria Antonia Tijerina Additional Instructions: Christine currently has two OP therapist one is Dr. Zhou in which she has an appointment June 11, 2023 at 4 PM. The other therapist is Katelynn Rodriguez, in which he next scheduled appointment is June 19, 2023 at 2 PM. Christine voiced that Katelynn is the therapist working with her on EMDR. Medications: Continued hydroxyzine HCl 25 mg Tablet 25 mg PO BID PRN (Reason: Anxiety) Qty: 20 0RF bupropion HCl [Wellbutrin XL] 300 mg Tablet Extended Release 24 Hr 300 mg PO QAM Qty: 60 0RF melatonin 5 mg capsule 10 mg PO QPM Changed buspirone 10 mg tablet 10 mg PO BID@0900,1700 14 Days Qty: 28 0RF Rx Instructions: 2 tabs daily prn lithium carbonate 300 mg Capsule 300 mg PO BEDTIME Qty: 60 0RF Stand Alone Forms: Patient Portal Discharge page
--- NOTE | 2023-06-12 16:13 | HO.PHP ---
The client's case was reviewed and opened in treatment team.
--- NOTE | 2023-06-19 13:36 | HO.PHP ---
IOP staff member followed up with Christine. Christine informed the clinician that she took the position. Christine disclosed that she wanted to follow up with me last week to see if she should have taken it. IOP staff member disclosed that she would have helped her process what Christine believes was the best choice but wouldn't make that decision for her. Christine expressed her worries for the new job. IOP staff member validated Christine's feelings and reminded her of positives since she was engaging in negative thoughts. Christine was receptive. [facility] congratulated Christine.
--- NOTE | 2023-06-21 21:23 | HO.PHPPROGNO ---
Subjective Subjective Date of Service: 06/21/23 Reason For Visit: depression,anxiety Interim History: Patient seen for follow-up today. No acute issues or concerns. She reports not getting enough sleep lately, on account of working late or just staying up late trying to get things done around the house. She did find moving the 2nd dose of Buspar from HS to earlier in the evening with dinner to be helpful in not delaying sleep onset. She has only been taking hydroxyzine twice a week. She has been off the lithium now since the start of the week. No changes in mood noticed yet. She denies any symptoms of depression or rodney. Mostly focused on concerns anticipating losing insurance once she switched jobs in August, she will need to wait 30 days before insurance is activated. SUSAN costs too much, her father has been priming her to negotiate this as part of her salary. She was seen by salvage engineering technician who ruled out COPD, she has been referred to cardiology for an ECHO given issues with intermittent SOB, wheezing without clear triggers. No issues currently. She reports mood as stable. SHe denies any hopelessness or SI. No illicit substance use. Drinks socially on occasion, in moderation. Medication Compliance: Yes Side effects from medications: No Attending Groups: Yes Review of Systems Acute medical concerns: No Mental Status Exam Mental Status Exam Narrative: Alert and oriented, in no acute distress. Pleasant, calm but reserved, slightly uptight demeanor, but cooperative. Maintains eye contact. Speech normal. No evidence of pressured or delayed speech. Mood anxious. Affect brighter, appropriate. Denies any SI or HI. No paranoia or psychosis. Cognition intact. Insight fair but adequate. Judgment intact. Diagnostics Vital Signs (24Hr): BMI result Body Mass Index 24.0 Assessment & Plan Assessment & Plan (1) Generalized anxiety disorder: Status: Acute Code(s): F41.1 - Generalized anxiety disorder (2) Major depressive disorder, recurrent, in partial remission: Status: Acute Code(s): F33.41 - Major depressive disorder, recurrent, in partial remission Plan continue treatment plan continue in [facility] Patient educated on: diagnosis and medication risk/benefits Informed Consent: understands Reason for contiued partial hosp. stay Substantial Risk for: med/psych decompensation Certification I certify that partial hospital treatment is medically necessary due to the symptoms and problems resulting from the patient's mental illness and the failure to treat the patient at the partial hospital level of care would likely result in the patient requiring inpatient psychiatric care which could not be prevented at a less intensive level of care. Total time managing care of this patient today __30__ minutes. Discharge Plan Discharge Attending provider: Maria Antonia Tijerina Additional Instructions: Christine currently has two OP therapist one is Dr. Zhou in which she has an appointment June 11, 2023 at 4 PM. The other therapist is Katelynn Rodriguez, in which he next scheduled appointment is June 19, 2023 at 2 PM. Christine voiced that Katelynn is the therapist working with her on EMDR. Medications: Continued hydroxyzine HCl 25 mg Tablet 25 mg PO BID PRN (Reason: Anxiety) Qty: 20 0RF bupropion HCl [Wellbutrin XL] 300 mg Tablet Extended Release 24 Hr 300 mg PO QAM Qty: 60 0RF melatonin 5 mg capsule 10 mg PO QPM Changed buspirone 10 mg tablet 10 mg PO BID@0900,1700 14 Days Qty: 28 0RF Rx Instructions: 2 tabs daily prn lithium carbonate 300 mg Capsule 300 mg PO BEDTIME Qty: 60 0RF Stand Alone Forms: Patient Portal Discharge page
--- NOTE | 2023-06-24 14:00 | HO.PHP ---
PHP staff member met with Christine after the third group to explore how she feels the program is going this far. Christine expressed that she feels it is going well but she noted she wants to move forward from her past relationship and does not want to continue discussing this past. PHP staff member empathized with Christine and suggested that she steps down to coming only on M, W, and F to work on transitioning back into her job. Christine did not like this idea and feels if she does that her work place will give her more cases to manage and she won't be able to complete the work on time. Christine then suggested that we compromise to once a week. PHP staff member expressed that having a transitional period is important to have and encouraged her to process it further tonight. Christine mentioned that she is feeling overwhelmed and was tearful. Christine and PHP staff member discussed the changes that Christine is going through, in which the clinician encouraged her to further discuss with her trauma therapist why it is so challenging for her to move on from her past relationship and what is holding her back. Christine was receptive and voiced that she is journaling what she feels is considered a red flag, even though it is not and discussing with her therapist. PHP staff member was receptive. [facility] staff member explored with Christine if she is advertising her peer groups since we found papers in the community room. Christine expressed that was a staff member here. PHP staff member informed Christine that we are going to have to remove them from that area due to it breaking our [facility] policy around friendlly but not friends, along with not engaging with others outside of the program. Christine was receptive and noted that she is okay with the clinician discarding them due to the policy. PHP staff member and Christine discussed her concerns around work. Christine expressed that she will be here tomorrow and did not present any concerns.
--- NOTE | 2023-06-28 13:13 | HO.PHP ---
Addendum entered by Linda Lemus 06/28/23 15:21: Should state IOP staff member, redact PHP Staff member Original Note: PHP staff member met with Christine upon her request, in which she was anxious about returning to work. PHP staff member helped Christine further process her feelings and validated her concerns. Christine was able to actively problem solve and appeared calmer by the end of the conversation. PHP staff member assessed safety. Christine reported no concerns around safety and voiced she will be here on Saturday.
--- NOTE | 2023-07-03 14:42 | HO.PHP ---
At 10:45 am, blog writer met with Pt to discuss her discharge plan set for Saturday. Pt brought up some transitional concerns she's been having regarding her new job, insurance changes and medical tests. Pt listed several ways she is trying to resolve these matters. Expressed appropriate problem-solving skills and some healthy anxiety around discharge as a result. When prompted, pt was able to identify several goals she set and met while at [facility] during her last 3 recent admissions. Pt acknowledged areas in her life where progress has been made. Identified several personal supports, several outpatient and community supports that she utilizes either daily or weekly. Pt denied a need for inpatient care for the chronic SI that pt states she has been struggling with long-term, stating she has been able to improve her SI as well in the past month. Pt reports she has 2 therapists she sees regularly, one that specializes in trauma, the other she feels has not been able to help her very much so pt is considering locating a different therapist in the near future. Field Ironworker and pt discussed additional, alternative options for outpatient services post [facility] such as looking into Gestalt therapy and/or an art therapist to supplement her trauma therapist in the future. Pt is scheduled to meet with the [facility] provider tomorrow to address further concerns that can help pt stay on track to discharging Saturday as planned.
--- NOTE | 2023-07-05 16:34 | P.PNPSP_ITS ---
Subjective Subjective Date of Service: 07/05/23 Reason For Visit: depression,anxiety Interim History: Patient seen for follow-up. She is scheduled for discharge at the end of the program today. Patient reports she is doing okay, just circumstantial stuff setting me back . She has been back to work on a part-time basis since starting IOP. She is dealing with seeing her ex at work on a regular basis. Says she is not happy about it but is dealing until she starts at her new job in August. She has accepted the new job but will wait until July to tell her current employer. 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 She is reporting some residual depression and anxiety, mostly as it relates to the relationship loss. Believes it will take a while to get over it . She is dating someone currently which initially was helpful in distracting her however she has decided she does not want to move forward with this relationship and spends the majority of our discussion today trying to figure out how and when she is planning to break up with him. Overall she feels PHP has been helpful, she reports benefitting from the supportive environment and gives her a reason to get up in the morning and do something that isn't work . The remainder of our discussion is focused on continued concerns about health issues. She continues to report problems with shortness of breath for which she was recently seen by pulmonology. Reportedly there were no significant findings on the results from her pulmonary function tests and was told by the help desk supervisor that she does not have COPD. She does not seem to be reassured by this. She requested an EKG today, however denies any new symptoms, no chest pain/pressure, no palpitations. No peripheral edema, no orthopnea nor other cardiac symptoms. No dyspnia, cough, congestion or other signs/symptoms appreciated by this underwriter mortgage loan during our discussion, patient speaks at length in full sentances without notable pauses. She has a cardiology appointment, she requested the referral from the help desk supervisor. I will defer to cardiology if they would want to order an EKG, at given her current presentation, an EKG is not warranted. She continues on Wellbutrin, Buspar. She was tapered off of lithium almost a month ago and remains stable at this time. She contiues to endorse passive SI as yea I have those thoughts sometimes. No intention with it, just the thought that I am defective (in relationships). Diagnostics Vital Signs (24Hr): BMI result Body Mass Index 24.0 Assessment & Plan Assessment & Plan (1) Generalized anxiety disorder: Status: Acute Code(s): F41.1 - Generalized anxiety disorder (2) Major depressive disorder, recurrent, in partial remission: Status: Acute Code(s): F33.41 - Major depressive disorder, recurrent, in partial remission (3) Personality disorder: Status: Acute Code(s): F60.9 - Personality disorder, unspecified Assessment and Plan: cluster C traits Plan [facility] from [facility] continue with regular medications: Wellbutrin XL 300 mg qAM Buspar 10 mg BID (0900,1700) melatonin 10 mg qhs PRN Patient is no longer taking lithium (since 06/15/23) Will defer further medication management to outpatient provider Patient educated on: diagnosis and medication risk/benefits Informed Consent: understands Reason for contiued partial hosp. stay Substantial Risk for: stable for discharge Certification I certify that partial hospital treatment is medically necessary due to the symptoms and problems resulting from the patient's mental illness and the failure to treat the patient at the partial hospital level of care would likely result in the patient requiring inpatient psychiatric care which could not be prevented at a less intensive level of care. Total time managing care of this patient today __30__ minutes. Discharge Plan Discharge Attending provider: Maria Antonia Tijerina Additional Instructions: Christine currently has two OP therapist one is Dr. Zhou in which she has an appointment June 11, 2023 at 4 PM. The other therapist is Katelynn Rodriguez, in which he next scheduled appointment is June 19, 2023 at 2 PM. Christine voiced that Katelynn is the therapist working with her on EMDR. Medications: Continued hydroxyzine HCl 25 mg Tablet 25 mg PO BID PRN (Reason: Anxiety) Qty: 20 0RF bupropion HCl [Wellbutrin XL] 300 mg Tablet Extended Release 24 Hr 300 mg PO QAM Qty: 60 0RF melatonin 5 mg capsule 10 mg PO QPM Changed buspirone 10 mg tablet 10 mg PO BID@0900,1700 14 Days Qty: 28 0RF Rx Instructions: 2 tabs daily prn Discontinued lithium carbonate 300 mg Capsule 600 mg PO BEDTIME Qty: 60 0RF Stand Alone Forms: Patient Portal Discharge page Patient Education: Depression (DC), Generalized Anxiety Disorder (GEN)
== END 2023-07-05 23:59 | disposition home or self-care (01) ==
LOC: HO.IOP 09:00
PROVIDERS: Visit Provider Psychiatry & Neurology Psychiatry
DX: F41.1 Generalized anxiety disorder (principal); F33.41 Major depressive disorder, recurrent, in partial remission; Z79.899 Other long term (current) drug therapy
CPT/HCPCS: 90791; H0015; S9480

== ENCOUNTER 2023-07-05 12:22 | Outpatient (REF) | payer OTHER, SELFPAY ==
[2023-07-05 12:33] LABS: MANUAL DIFF FLAG NO
[2023-07-05 13:09] LABS: Basophils Absolute Auto 0.1 X10*3/uL (0.0-0.2); Basophils Percent Auto 0.9 % (0-2); Eosinophils Absolute Auto 0.1 X10*3/uL (0.0-0.4); Eosinophils Percent Auto 0.8 % (0-4); Hematocrit 39.7 % (37.0-47.0); Hemoglobin 13.3 g/dl (12.0-16.0); Imm Gran Abs Auto 0.03 X10*3/uL (0.00-0.03); Imm Gran Pct Auto 0.3 % (0.0-0.4); Lymphocytes Absolute Auto 2.4 X10*3/uL (1.2-4.9); Lymphocytes Percent Auto 24.3 % (20-40); Mean Corpuscular HGB Conc 33.5 g/dl (31.0-35.0); Mean Corpuscular Hemoglobin 30.6 pg (27.0-33.0); Mean Corpuscular Volume 91.3 fL (80.0-98.0); Mean Platelet Volume 10.3 fL (9.4-12.3); Monocytes Absolute Auto 0.8 X10*3/uL (0.1-1.2); Monocytes Percent Auto 8.1 % (2-11); Neutrophils Absolute Auto 6.3 x10*3/uL (2.0-8.3); Neutrophils Percent Auto 65.6 % (45-73); Platelet Count 281 X10*3/uL (160-400); Red Blood Count 4.35 X10*6/uL (4.20-5.50); Red Cell Distribution Width 12.5 % (11.0-16.0); White Blood Count 9.7 X10*3/uL (4.8-10.8)
[2023-07-05 14:13] LABS: Anion Gap 14 (12-20); Blood Urea Nitrogen 10 mg/dL (9-16); Calcium 9.1 mg/dL (8.4-10.2); Carbon Dioxide 23 mmol/L (22-29); Chloride 107 mmol/L (96-108); Estimated Glomerular Filt Rate > 60; Glucose Random 94 mg/dL (60-115); Potassium 3.8 mmol/L (3.3-5.1); Sodium 140 mmol/L (135-145)
[2023-07-05 14:36] LABS: Free T4 (Free Thyroxine) 0.83 ng/dL (0.71-1.85); Thyroid Stimulating Hormone 1.87 uIU/mL (0.32-4.0)
== END 2023-07-05 12:23 | disposition home or self-care (01) ==
LOC: HO.LAB 12:22
PROVIDERS: PCP Internal Medicine; Visit Provider Psychiatry & Neurology Psychiatry
DX: F41.1 Generalized anxiety disorder (principal)
CPT/HCPCS: 36415; 80048; 84439; 84443; 85025